=== PATIENT | female | born 2000 | race Caucasian/White ===

== ENCOUNTER 2023-06-29 11:15 | Outpatient (CLI) | payer MEDICAID, OTHER | END 2023-06-29 11:16 | disposition home or self-care (01) | LOC: CSHULT 11:15 | PROVIDERS: ATTEND Nurse Practitioner Women's Health | DX: O09.892 Supervision of other high risk pregnancies, second trimester (principal); Z3A.19 19 weeks gestation of pregnancy | CPT/HCPCS: 76805 ==

== ENCOUNTER 2023-10-26 19:54 | Day surgery (SDC) | payer OTHER ==
[2023-10-26 20:12] VITALS: BMI 33.9
[2023-10-26] MEDS ORDERED: hydrALAZINE 20 MG/ML VIAL SLOW IVP PRN (20:25)
== END 2023-10-26 22:00 | disposition home or self-care (01) ==
LOC: CSHLD/OP 19:54
PROVIDERS: ATTEND Family Medicine
DX: O36.8130 Decreased fetal movements, third trimester, not applicable or unspecified (principal); O00.01 Abdominal pregnancy with intrauterine pregnancy; Z79.899 Other long term (current) drug therapy; Z3A.37 37 weeks gestation of pregnancy
CPT/HCPCS: 76819

== ENCOUNTER 2023-11-07 05:56 | Inpatient (IN) | payer OTHER ==
[2023-11-07 06:37] VITALS: BMI 34.1
[2023-11-07] MEDS: Oxytocin 30 units/NS 500 ML 500 ML ONE (07:07)
[2023-11-07 07:30] LABS: #Basophils 0.06 10x3/uL (0.0-0.2); #Eosinphils 0.14 10x3/uL (0.0-0.5); #Monocytes 0.79 10x3/uL (0.0-1.1); #Neutrophils 5.28 10x3/uL (1.5-8.4); %Basophils 0.7 % (0.0-2.0); %Eosinophils 1.6 % (0.0-6.0); %Lymphocytes 29.4 % (18.0-47.0); %Monocytes 8.8 % (0.0-10.0); %Neutrophils 58.8 % (40.0-75.0); Hematocrit 26.8 % (34.9-44.5); Hemoglobin 9.1 g/dL (12.0-15.5); Mean Corpuscular Volume 73.6 fL (81.6-98.3); Mean Platelet Volume 10.3 fL (7.4-10.4); Platelet Count 174 10x3/uL (150-450); RBC Distribution Width 12.6 % (11.5-14.5); Red Blood Cell (RBC) Count 3.64 10x6/uL (3.90-5.03)
[2023-11-07 07:58] LABS: Syphilis Antibody Nonreactive (Nonreactive); Syphilis Antibody Index 0.03 S/CO (<1.00 Non-Reactive)
[2023-11-07] MEDS ORDERED: Methylergonovine 0.2 MG/ML VIAL IM PRN (07:59)
[2023-11-07] MEDS ORDERED: Diphenoxylate HCl/Atropine Tablet PO PRN (07:59)
[2023-11-07] MEDS ORDERED: Carboprost 250 MCG/ML AMP IM PRN (07:59)
[2023-11-07] MEDS ORDERED: Promethazine HCl 25 MG/ML VIAL IM PRN ×3 (07:59→22:18)
[2023-11-07] MEDS ORDERED: Acetaminophen 500 MG TAB PO PRN (07:59)
[2023-11-07] MEDS ORDERED: fentaNYL 50 mcg/mL 1 mL Vial SLOW IVP PRN (07:59)
[2023-11-07] MEDS ORDERED: Misoprostol 200 MCG TAB PR PRN (07:59)
[2023-11-07] MEDS ORDERED: hydrALAZINE 20 MG/ML VIAL SLOW IVP PRN ×2 (07:59→22:18)
[2023-11-07] MEDS ORDERED: Tranexamic Acid 1,000 MG/10 ML VIAL IVP PRN (07:59)
[2023-11-07] MEDS ORDERED: HYDROcodone/Acetaminophen 5/325 mg Tablet PO PRN ×2 (07:59→22:18)
[2023-11-07] MEDS ORDERED: Lactated Ringer's 1,000 ML IV SCH (08:00)
[2023-11-07] MEDS ORDERED: Oxytocin 30 units/NS 500 ML 500 ML IV SCH ×3 (08:00)
[2023-11-07 08:18] LABS: Microcytosis SLIGHT = 6-15 cells (100X) (0-5/hpf); Platelet Adequacy Comment Appears Adequate
[2023-11-07 09:02] LABS: HBsAg Index 0.16 S/CO (0-0.99); Hep B Surf Ag - L&D Non-Reactive S/CO (NonReactive)
[2023-11-07] MEDS ORDERED: Naloxone HCl 0.4 mg/ml Vial IVP PRN ×2 (10:35)
[2023-11-07] MEDS ORDERED: Moisturizing Cream (Eucerin) 113 GM JAR TOP PRN (10:35)
[2023-11-07] MEDS ORDERED: Lactated Ringer's 500 ML IV PRN (10:35)
[2023-11-07] MEDS ORDERED: Acetaminophen 325 MG TAB PO PRN (10:35)
[2023-11-07] MEDS ORDERED: Ondansetron PF 4 MG/2 ML Vial IVP PRN (10:35)
[2023-11-07] MEDS ORDERED: diphenhydrAMINE 50 MG/ML VIAL IVP PRN (10:35)
[2023-11-07] MEDS ORDERED: ePHEDrine Sulfate 50 MG/10 ML VIAL SLOW IVP PRN (10:35)
[2023-11-07] MEDS ORDERED: Communication Order-Pharmacy FS SCH (10:45)
[2023-11-07] MEDS ORDERED: fentaNYL 2 mcg/Ropivacaine 0.2% Epidural 100 ML CADD EPIDURAL SCH (10:45)
[2023-11-07 14:43] LABS: HBSAB Concentration Less than 8.00 mIU/mL; Hep B Surf AB NONREACTIVE (NonReactive)
[2023-11-07] MEDS ORDERED: Bupivacaine PF 0.5% 30 ML VIAL ONE (17:00)
[2023-11-07] MEDS: Ondansetron PF 4 MG/2 ML Vial IVP PRN ×2 (17:36→22:48)
[2023-11-07] MEDS: Lidocaine 1% (PF) 30 ML VIAL SC PRN (18:20)
[2023-11-07] MEDS: Ibuprofen 800 MG TAB PO PRN (20:58)
[2023-11-07] MEDS ORDERED: diphenhydrAMINE 25 MG CAP PO PRN (22:18)
[2023-11-07] MEDS ORDERED: Boostrix 0.5 ML (Tdap) VIAL (>/=7 yrs of age) IM ONE (22:18)
[2023-11-07] MEDS ORDERED: Bisacodyl 10 MG SUPP PR PRN (22:18)
[2023-11-07] MEDS ORDERED: Lanolin Ointment 7 GM TUBE TOP PRN (22:18)
[2023-11-07] MEDS ORDERED: Milk Of Magnesia 30 ML UDCUP PO PRN (22:18)
[2023-11-07] MEDS: fentaNYL/Ropivacaine Epidural 100 ML ONE (22:27)
[2023-11-07] MEDS: Docusate 100 MG CAP PO SCH (22:48)
[2023-11-08] MEDS: HYDROcodone/Acetaminophen 5/325 mg Tablet PO PRN (00:45)
[2023-11-08 03:43] LABS: Hematocrit 22.6 % (34.9-44.5); Hemoglobin 7.6 g/dL (12.0-15.5); Mean Corpuscular HGB CONC 33.6 g/dL (32.0-36.0); Mean Corpuscular Hemoglobin 24.7 pg (27.0-33.0); Mean Corpuscular Volume 73.4 fL (81.6-98.3); Mean Platelet Volume 10.1 fL (7.4-10.4); Platelet Count 173 10x3/uL (150-450); RBC Distribution Width 12.6 % (11.5-14.5); Red Blood Cell (RBC) Count 3.08 10x6/uL (3.90-5.03); White Blood Cell (WBC) Count 14.7 10x3/uL (3.5-10.5)
[2023-11-08] MEDS: Ibuprofen 800 MG TAB PO SCH (05:16)
[2023-11-08] MEDS: Ferrous Sulfate 325 MG TAB PO SCH (08:04)
[2023-11-08] MEDS: Docusate 100 MG CAP PO SCH (09:03)
[2023-11-08] MEDS: Prenatal Vitamin 1 TAB PO SCH (09:03)
[2023-11-08 19:53] VITALS: TEMP 97.8
[2023-11-09 08:05] VITALS: BP 102/56
[2023-11-09] MEDS: Benzocaine-Menthol 82.5 ML CAN TOP PRN (13:59)
== END 2023-11-09 14:45 | disposition home or self-care (01) | DRG 807 ==
LOC: CSHLD 05:56 → UNDOADMIN 05:56 → CSHLD 08:02 → CSHPP 22:00
PROVIDERS: ADMIT Family Medicine; ATTEND Family Medicine
PROC: 10E0XZZ Delivery of Products of Conception, External Approach (ICD-10-PCS; principal; 2023-11-07)
PROC: 0KQM0ZZ Repair Perineum Muscle, Open Approach (ICD-10-PCS; 2023-11-07)
PROC: 0UQMXZZ Repair Vulva, External Approach (ICD-10-PCS; 2023-11-07)
PROC: 10907ZC Drainage of Amniotic Fluid, Therapeutic from Products of Conception, Via Natural or Artificial Opening (ICD-10-PCS; 2023-11-07)
PROC: 3E0234Z Introduction of Serum, Toxoid and Vaccine into Muscle, Percutaneous Approach (ICD-10-PCS; 2023-11-08)
DX: O26.893 Other specified pregnancy related conditions, third trimester (principal); Z37.0 Single live birth; O70.1 Second degree perineal laceration during delivery; O71.82 Other specified trauma to perineum and vulva; Z3A.39 39 weeks gestation of pregnancy; Z67.21 Type B blood, Rh negative
CPT/HCPCS: 36415; 51702; 85025; 85027; 85461; 86706; 86780; 86850; 86870; 86900; 86901; 87340; 90384; 96372; J0665; J2001; J2405; J2590